=== PATIENT | male | born 1945 | race Caucasian/White ===

== ENCOUNTER 2017-03-02 17:04 | Emergency (ER) | payer MEDICARE ==
[~2017-03-02] VITALS: Ht 188 cm; Wt 100.0 kg
[~2017-03-02 17:04] MED LIST: ATENOL/CHLOR1 TA2 PO; ATENOLOL25 MG PO; LORTAB 1010 MG PO; LORTAB 5 OR; MEDDOSEPAK PO; OMEPRAZOLE10 MG PO; PREVACID30 M2 OR; SOMA350 MG PO
[2017-03-02 17:45] LABS: HEMATOCRIT 41.8 % (39.0-50.0); HEMOGLOBIN 14.5 g/dl (14.0-18.0); IMMATURE GRANULOCYTES 0.3 % (0.0-1.0); MEAN CELL VOLUME 91.9 fL CALC (80.0-100.0); MEAN CORPUSCULAR HGB 31.9 pG CALC (26.0-32.0); MEAN CORPUSCULAR HGB CONC 34.7 g/L CALC (32.0-36.0); NEUT# 6.27 thou/uL (1.82-7.42); RED BLOOD COUNT 4.55 mill/uL (4.70-6.10); RED CELL DISTRI WIDTH 12.6 % (11.5-15.5)
[2017-03-02 18:06] LABS: ALBUMIN 4.7 g/dL (3.2-5.0); ALKALINE PHOSPHATASE 69 u/l (38-126); ANION GAP 17 (6-22 (CALC)); BILIRUBIN, TOTAL 0.7 mg/dL (0.0-1.4); BUN 15 mg/dL (8-23); BUN/CREATININE RATIO 14 (12-20 (CALC)); CALCIUM 9.7 mg/dL (8.4-10.2); CARBON DIOXIDE 27 mmol/l (22-30); CHLORIDE 101 mmol/l (95-108); CPK 588 u/l (52-200); CREATININE 1.1 mg/dL (0.7-1.3); GFR > 60 ML/MIN (>=60 (CALC)); GFR FOR AFR.AMER. > 60 ML/MIN (>=60 (CALC)); GLUCOSE 109 mg/dL (82-115); POTASSIUM 3.6 mmol/l (3.5-5.1); SGOT/AST 42 u/l (19-48); SGPT/ALT 37 u/l (11-66); SODIUM 142 mmol/l (137-146); TOTAL PROTEIN 8.2 g/dL (6.3-8.2)
[2017-03-02] MEDS ORDERED: PERCOCET 5/325M1 TAB PO (18:43)
[2017-03-02 19:14] VITALS: BP 121/77
== END 2017-03-02 19:14 | disposition left against medical advice (07) ==
LOC: ED 17:04
PROVIDERS: Emergency Medicine
DX: S67.42XA Crushing injury of left wrist and hand, initial encounter (principal); S57.82XA Crushing injury of left forearm, initial encounter; I10 Essential (primary) hypertension; F17.210 Nicotine dependence, cigarettes, uncomplicated; W31.89XA Contact with other specified machinery, initial encounter; Y92.89 Other specified places as the place of occurrence of the external cause

== ENCOUNTER 2018-06-04 12:42 | Emergency (ER) | payer MEDICARE ==
[~2018-06-04] VITALS: Ht 188 cm; Wt 93.2 kg
[~2018-06-04 12:42] MED LIST changes: +PERCOCET 5/325M1 TAB PO
[2018-06-04 13:55] LABS: ALBUMIN 4.3 g/dL (3.2-5.0); ALKALINE PHOSPHATASE 71 u/l (38-126); ANION GAP 14 (6-22 (CALC)); BILIRUBIN, TOTAL 0.7 mg/dL (0.0-1.4); BUN 18 mg/dL (8-23); BUN/CREATININE RATIO 18 (12-20 (CALC)); CARBON DIOXIDE 31 mmol/l (22-30); CHLORIDE 98 mmol/l (95-108); GFR > 60 ML/MIN (>=60 (CALC)); GFR FOR AFR.AMER. > 60 ML/MIN (>=60 (CALC)); POTASSIUM 3.6 mmol/l (3.5-5.1); SGOT/AST 25 u/l (19-48); SGPT/ALT 29 u/l (11-66); SODIUM 139 mmol/l (137-146); TOTAL PROTEIN 7.6 g/dL (6.3-8.2)
[2018-06-04 13:56] LABS: HEMATOCRIT 41.9 % (39.0-50.0); HEMOGLOBIN 14.7 g/dl (14.0-18.0); IMMATURE GRANULOCYTES 0.5 % (0.0-1.0); MEAN CELL VOLUME 91.3 fL CALC (80.0-100.0); MEAN CORPUSCULAR HGB CONC 35.1 g/L CALC (32.0-36.0); NEUT# 7.37 thou/uL (1.82-7.42); RED BLOOD COUNT 4.59 mill/uL (4.70-6.10); RED CELL DISTRI WIDTH 12.3 % (11.5-15.5)
[2018-06-04] MEDS ORDERED: KEFLEX500 M1 PO (14:20)
[2018-06-04 14:43] VITALS: BP 122/70
== END 2018-06-04 15:02 | disposition home or self-care (01) ==
LOC: ED 12:42
DX: L03.116 Cellulitis of left lower limb (principal); M25.572 Pain in left ankle and joints of left foot; I10 Essential (primary) hypertension; F17.210 Nicotine dependence, cigarettes, uncomplicated

== ENCOUNTER 2021-11-04 07:05 | Day surgery (SDC) | payer MEDICARE ==
[~2021-11-04] VITALS: Ht 188 cm; Wt 104.3 kg
[~2021-11-04 07:05] MED LIST changes: +CRESTOR5 M1 PO; +KEFLEX500 M1 PO; +MULTI VITAMIN1 TAB PO; +PREDNISONE1 MG PO
[2021-11-04 09:34] VITALS: BP 120/75
--- NOTE | 2021-11-10 13:17 | NUR ---
PER MD, PATIENT NOTIFIED OF NEGATIVE COLONOSCOPY RESULTS AND RECOMMENDED REPEAT X 3 YEARS. PATIENT AGREED WITH INFORMATION PROVIDED AND STATED WILL FOLLOW UP WITH PCP. NOTE AND RESULTS FORWARDED TO PCP FOR CONTINUITY OF CARE.
== END 2021-11-04 09:41 | disposition home or self-care (01) ==
LOC: ENDO 07:05 → ORM 08:45 → ENDO 08:45
PROVIDERS: ATTEND Surgery
PROC: 0DBK8ZX Excision of Ascending Colon, Via Natural or Artificial Opening Endoscopic, Diagnostic (ICD-10-PCS; principal; 2021-11-04)
PROC: 0DBH8ZX Excision of Cecum, Via Natural or Artificial Opening Endoscopic, Diagnostic (ICD-10-PCS; 2021-11-04)
DX: Z12.11 Encounter for screening for malignant neoplasm of colon (principal); D12.2 Benign neoplasm of ascending colon; D12.0 Benign neoplasm of cecum; K57.30 Diverticulosis of large intestine without perforation or abscess without bleeding; K64.8 Other hemorrhoids; I10 Essential (primary) hypertension; Z86.010 Personal history of colon polyps

== ENCOUNTER 2022-09-26 13:49 | Emergency (ER) | payer MEDICARE ==
[~2022-09-26] VITALS: Ht 188 cm; Wt 78.0 kg
[2022-09-26 14:49] VITALS: BP 126/84
[2022-09-26 15:02] LABS: HEMATOCRIT 37.1 % (39.0-50.0); HEMOGLOBIN 12.3 g/dl (14.0-18.0); IMMATURE GRANULOCYTES 0.5 % (0.0-5.0); MEAN CELL VOLUME 93.5 fL CALC (80.0-100.0); MEAN CORPUSCULAR HGB CONC 33.2 g/dL CAL (32.0-36.0); NEUT# 5.88 thou/uL (1.82-7.42); RED BLOOD COUNT 3.97 mill/uL (4.70-6.10); RED CELL DISTRI WIDTH 15.5 % (11.5-15.5)
[2022-09-26 15:12] LABS: ALBUMIN 4.2 g/dL (3.2-5.0); ALKALINE PHOSPHATASE 320 u/l (38-126); ANION GAP 14 (6-22 (CALC)); BILIRUBIN, TOTAL 0.9 mg/dL (0.0-1.4); BUN 26 mg/dL (8-23); BUN/CREATININE RATIO 20 (12-20 (CALC)); CARBON DIOXIDE 27 mmol/l (22-30); CHLORIDE 104 mmol/l (95-108); CREATININE 1.3 mg/dL (0.7-1.3); GFR FOR AFR.AMER. > 60 ML/MIN (>=60 (CALC)); GFR OTHER RACES 54 ML/MIN (>=60 (CALC)); LIPASE 210 u/l (23-300); POTASSIUM 4.1 mmol/l (3.5-5.1); SGOT/AST 350 u/l (19-48); SODIUM 140 mmol/l (137-146); TOTAL PROTEIN 7.4 g/dL (6.3-8.2)
[2022-09-26 16:36] VITALS: BP 140/88
[2022-09-26] MEDS ORDERED: PROTONIX40 M2 PO (16:43)
[2022-09-26 18:15] LABS: URINE BILIRUBIN - DIPSTICK NEGATIVE (NEGATIVE); URINE BLOOD DIPSTICK NEGATIVE (NEGATIVE); URINE COLOR YELLOW; URINE GLUCOSE - DIPSTICK NEGATIVE (NEGATIVE); URINE KETONE NEGATIVE (NEGATIVE); URINE LEUK ESTERASE NEGATIVE (NEGATIVE); URINE PROTEIN - DIPSTICK NEGATIVE (NEG-TRACE); URINE UROBILINOGEN - DIPSTICK 0.2 E.U./dL (0.2)
[2022-09-26 18:28] LABS: URINE NITRITE - DIPSTICK NEGATIVE (Negative)
[2022-09-26 18:34] VITALS: BP 140/88
== END 2022-09-26 18:35 | disposition home or self-care (01) ==
LOC: ED 13:49
PROVIDERS: Family Medicine
DX: C78.7 Secondary malignant neoplasm of liver and intrahepatic bile duct (principal); C80.1 Malignant (primary) neoplasm, unspecified; I10 Essential (primary) hypertension; Z86.16 Personal history of COVID-19
CPT/HCPCS: Q9967

== ENCOUNTER 2022-12-07 12:58 | Inpatient (IN) | payer MEDICARE ==
[~2022-12-07] VITALS: Ht 188 cm; Wt 86.0 kg
[2022-12-07] VITALS (14 sets, daily range): BP systolic 95–112; BP diastolic 55–69
[~2022-12-07 12:58] MED LIST changes: +ANTI-DIARRHEAL2 M1 PO; +CARISOPRODOL350 M1; +OMEPRAZOLE DR40 MG; +PROTONIX40 M2 PO
[2022-12-07] MEDS ORDERED: STATIN (13:29)
[2022-12-07 13:36] LABS: BASO% 0.3 % (0-3); EOS% 0.9 % (0-8); HEMATOCRIT 36.3 % (39.0-50.0); IMMATURE GRANULOCYTES 0.5 % (0.0-5.0); LYMPH% 8.8 % (15-41); MEAN CELL VOLUME 97.8 fL CALC (80.0-100.0); MEAN CORPUSCULAR HGB 32.3 pG CALC (26.0-32.0); MEAN CORPUSCULAR HGB CONC 33.1 g/dL CAL (32.0-36.0); MONO% 4.7 % (2-13); NEUT# 7.72 thou/uL (1.82-7.42); NEUT% 84.8 % (42-76); RED BLOOD COUNT 3.71 mill/uL (4.70-6.10); RED CELL DISTRI WIDTH 18.2 % (11.5-15.5)
[2022-12-07 14:00] LABS: ALBUMIN 3.7 g/dL (3.2-5.0); CHLORIDE 95 mmol/l (95-108); CPK 93 u/l (52-200); LIPASE 603 u/l (23-300); MAGNESIUM 1.2 mg/dL (1.6-2.3); TOTAL PROTEIN 7.2 g/dL (6.3-8.2)
[2022-12-07 14:07] LABS: ANION GAP 28 (6-22 (CALC)); BUN 72 mg/dL (8-23); BUN/CREATININE RATIO 16 (12-20 (CALC)); CARBON DIOXIDE 11 mmol/l (22-30); CREATININE 4.4 mg/dL (0.7-1.3); GFR FOR AFR.AMER. 16 ML/MIN (>=60 (CALC)); GFR OTHER RACES 13 ML/MIN (>=60 (CALC)); POTASSIUM 5.7 mmol/l (3.5-5.1); SODIUM 128 mmol/l (137-146)
[2022-12-07 14:08] LABS: ALKALINE PHOSPHATASE 1167 u/l (38-126); BILIRUBIN, TOTAL 10.7 mg/dL (0.0-1.4); SGOT/AST 742 u/l (19-48)
[2022-12-07] MEDS ORDERED: LIPITOR20 M1 PO (18:36)
[2022-12-07] MEDS ORDERED: ZOFRAN4 MG/TAB PO (18:36)
[2022-12-07] MEDS ORDERED: IMODIUM2 MG PO (18:37)
[2022-12-07] MEDS ORDERED: PROTONIX40 M2 PO (18:38)
[2022-12-08 04:00] VITALS: BP 123/66
[2022-12-08 04:35] VITALS: BP 123/66
[2022-12-08 07:38] VITALS: BP 112/67
[2022-12-08 10:52] LABS: ACT PARTIAL THROMBO TIME 32.6 SECONDS (20.0-32.5); INTERNATIONAL NORMALIZED RATIO 1.1 RATIO (0.7-1.3); PROTHROMBIN TIME 11.2 SECONDS (9.0-12.5)
[2022-12-08 11:48] LABS: ALBUMIN 3.5 g/dL (3.2-5.0); BILIRUBIN, TOTAL 10.5 mg/dL (0.0-1.4); TOTAL PROTEIN 6.9 g/dL (6.3-8.2)
[2022-12-08 11:55] LABS: CREATININE 4.4 mg/dL (0.7-1.3)
[2022-12-08 12:18] LABS: POTASSIUM 5.9 mmol/l (3.5-5.1)
[2022-12-08 15:52] VITALS: BP 108/66
[2022-12-09] VITALS (7 sets, daily range): BP systolic 108–116; BP diastolic 63–68
[2022-12-09 06:44] LABS: ALBUMIN 3.4 g/dL (3.2-5.0); BILIRUBIN, TOTAL 9.9 mg/dL (0.0-1.4); CREATININE 4.9 mg/dL (0.7-1.3); TOTAL PROTEIN 6.8 g/dL (6.3-8.2)
[2022-12-09 06:51] LABS: MAGNESIUM 1.7 mg/dL (1.6-2.3); POTASSIUM 5.8 mmol/l (3.5-5.1)
[2022-12-09 06:52] LABS: BASO% 0.1 % (0-3); EOS% 1.7 % (0-8); HEMATOCRIT 36.2 % (39.0-50.0); HEMOGLOBIN 11.3 g/dl (14.0-18.0); IMMATURE GRANULOCYTES 1.1 % (0.0-5.0); LYMPH% 7.7 % (15-41); MEAN CELL VOLUME 102.8 fL CALC (80.0-100.0); MEAN CORPUSCULAR HGB 32.1 pG CALC (26.0-32.0); MEAN CORPUSCULAR HGB CONC 31.2 g/dL CAL (32.0-36.0); NEUT# 6.21 thou/uL (1.82-7.42); NEUT% 83.4 % (42-76); RED BLOOD COUNT 3.52 mill/uL (4.70-6.10); RED CELL DISTRI WIDTH 18.3 % (11.5-15.5)
== END 2022-12-09 21:00 | disposition hospice, inpatient (51) | DRG 435 ==
LOC: ED 12:58 → ED-I 15:00 → ED 16:00 → MS2 16:01
PROVIDERS: Internal Medicine; Nurse Practitioner Family; ADMIT Internal Medicine; ATTEND Internal Medicine
DX: C22.8 Malignant neoplasm of liver, primary, unspecified as to type (principal); J18.9 Pneumonia, unspecified organism; K76.7 Hepatorenal syndrome; C79.9 Secondary malignant neoplasm of unspecified site; E87.1 Hypo-osmolality and hyponatremia; N17.9 Acute kidney failure, unspecified; K72.90 Hepatic failure, unspecified without coma; K74.60 Unspecified cirrhosis of liver; R62.7 Adult failure to thrive; G89.3 Neoplasm related pain (acute) (chronic); I10 Essential (primary) hypertension; E83.42 Hypomagnesemia; E87.5 Hyperkalemia; B19.20 Unspecified viral hepatitis C without hepatic coma; E78.00 Pure hypercholesterolemia, unspecified; K21.9 Gastro-esophageal reflux disease without esophagitis; F32.A Depression, unspecified; Z20.822 Contact with and (suspected) exposure to COVID-19
CPT/HCPCS: G0378; J3475